=== PATIENT | male | born 1990 | race Caucasian/White ===

== ENCOUNTER 2021-06-10 08:12 | Outpatient (CLI) | payer SELFPAY | END 2021-06-10 23:59 | disposition home or self-care (01) | LOC: LABSPEC 06-11 08:18 | PROVIDERS: Visit Provider Family Medicine | DX: B34.9 Viral infection, unspecified (principal) | CPT/HCPCS: 87635; U0003; U0005 ==

== ENCOUNTER → 2024-09-04 | Outpatient (CLI) | payer BC, SELFPAY ==
--- NOTE | 2024-09-04 07:55 | RAD_ITS ---
PROCEDURE: ESOPHAGUS DUAL CONTRAST 09/04/2024 REASON FOR EXAM: GERD TECHNIQUE: The patient ingested barium. 46 fluoroscopic images were obtained. 33 seconds of fluoroscopy. 22.7 mGy COMPARISON: None FINDINGS: The esophagus is unremarkable. No evidence of esophageal obstruction. No mass lesion is seen. No gastroesophageal reflux is present. The patient ingested a 12 mm tablet the barium without any difficulty. RAD/Esophagus Dual Contrast IMPRESSION: Unremarkable air contrast esophagram. Reading Location: [facility]--1
== END | disposition home or self-care (01) ==
PROVIDERS: PCP Family Medicine; Referring Provider Internal Medicine Gastroenterology; Visit Provider Internal Medicine Gastroenterology
DX: R13.10 Dysphagia, unspecified (principal); K21.9 Gastro-esophageal reflux disease without esophagitis
CPT/HCPCS: 74221